=== PATIENT | male | born 2005 | race Caucasian/White ===

== ENCOUNTER 2025-03-31 08:29 | Day surgery (SDC) | payer OTHER, SELFPAY ==
[2025-03-31] VITALS (14 sets, daily range): BP systolic 104–127; BP diastolic 61–78; PULSE 60–86; RESP 16; TEMP 37.1–37.4; O2SAT 91–100; BMI 23.8
[2025-03-31] MEDS: SODIUM CHLORIDE 0.9 % (FLUSH) 10 ML SYRINGE IVF (08:58)
[2025-03-31] MEDS: LACTATED RINGERS 1000 ML 1,000 ML 100 ML IV (08:58)
--- NOTE | 2025-03-31 09:21 | W.PM.H&PU ---
History & Physical Update History & Physical Update H&P Updates: Plan is for bilateral leg open 4 compartment fasciotomies. No other H&P changes noted.
[2025-03-31] MEDS: BUPIVACAINE 0.5 %/EPI 1:200K 30 ML INJECTION (12:17)
[2025-03-31] MEDS: LIDOCAINE 1 % PF 30 ML INJECTION (12:46)
--- NOTE | 2025-03-31 13:46 | P.ANES_ITS ---
Anesthesia Charges Start Date/Time Anesthesia Start Date: 03/31/25 Anesthesia Start Time: 11:34 Stop Date/Time Anesthesia Stop Date: 03/31/25 Anesthesia Stop Time: 14:08 Coding CPT Codes CPT Codes: ANESTH LOWER LEG SURGERY - 05431 ([id number]) P1 - NORMAL HEALTHY PATIENT, QK - HAZARDOUS SUBSTANCES ENGINEER 2-4 CNCRNT ANES PROC, QX - MUSIC INTERN SVAlissa W/ MED DIRECTION
--- NOTE | 2025-03-31 13:46 | W.ANESCHARGE ---
Anesthesia Charges Start Date/Time Anesthesia Start Date: 03/31/25 Anesthesia Start Time: 11:34 Stop Date/Time Anesthesia Stop Date: 03/31/25 Anesthesia Stop Time: 14:08 Coding CPT Codes CPT Codes: ANESTH LOWER LEG SURGERY - 19579 ([id number]) P1 - NORMAL HEALTHY PATIENT, QK - FILLER MACHINE OPERATOR 2-4 CNCRNT ANES PROC, QX - CATTLE KNOCKER SVAlissa W/ MED DIRECTION
--- NOTE | 2025-03-31 14:14 | P.ANES_ITS ---
Anesthesia Charges Start Date/Time Anesthesia Start Date: 03/31/25 Anesthesia Start Time: 11:34 Stop Date/Time Anesthesia Stop Date: 03/31/25 Anesthesia Stop Time: 14:08 Coding CPT Codes CPT Codes: ANESTH LOWER LEG SURGERY - 64953 ([id number]) P1 - NORMAL HEALTHY PATIENT, QK - [place] MACHINE OPERATOR 2-4 CNCRNT ANES PROC, QX - ACCOUNTS PAYABLE CLERK SVAlissa W/ MED DIRECTION
--- NOTE | 2025-03-31 14:14 | W.ANESCHARGE ---
Anesthesia Charges Start Date/Time Anesthesia Start Date: 03/31/25 Anesthesia Start Time: 11:34 Stop Date/Time Anesthesia Stop Date: 03/31/25 Anesthesia Stop Time: 14:08 Coding CPT Codes CPT Codes: ANESTH LOWER LEG SURGERY - 46256 ([id number]) P1 - NORMAL HEALTHY PATIENT, QK - SERVICE DESK ANALYST 2-4 CNCRNT ANES PROC, QX - COMPUTER FORENSICS EXAMINER SVAlissa W/ MED DIRECTION
[2025-03-31] MEDS: IBUPROFEN 200 MG TABLET 600 MG PO (14:56)
--- NOTE | 2025-03-31 15:15 | SUR.PHASEII ---
PAtient tolerating food and drink. States pain is 5/10, maybe trending towards 6. Patient educated on the medication options he has available to him, onset, side effects, etc. Patient would like to wait at this time. Physical therapy notified of patient's height. Patient provided call light. Denies needs at this time. Parents at the bedside.
--- NOTE | 2025-03-31 15:19 | SUR.PHASEII ---
Dr. Green in to speak with patient and family.
[2025-03-31] MEDS: ACETAMINOPHEN 500 MG TABLET PO (15:30)
--- NOTE | 2025-03-31 15:54 | SUR.PHASEII ---
PT in with patient.
--- NOTE | 2025-03-31 16:43 | SUR.PHASEII ---
1640: Pt asking when he's able to drive. Per Ifeanyi DELEON, pt should not drive until after his follow-up appointment on 04/13. Patient verbalized understanding.
--- NOTE | 2025-04-01 14:44 | PM.ORPRC ---
Procedure Note Date of procedure: 04/01/25 Procedure: PREOPERATIVE DIAGNOSIS: 1. Bilateral leg chronic exertional compartment syndrome, multiple compartments (all 4) POSTOPERATIVE DIAGNOSIS: 1. Bilateral leg chronic exertional compartment syndrome, multiple compartments (all 4) PROCEDURE: 1. Bilateral leg open fasciotomy of 4 compartments (anterior, lateral, superficial posterior, and deep posterior) SURGEON: Deon Green M.D. DOUBLE BOTTOM DRIVER: Ifeanyi Shafer PA-C. Of note, an payroll and benefits assistant was critical for this case to aid in patient positioning, limb manipulation, tissue retraction, and closure. ANESTHESIA: General endotracheal anesthetic EBL: 100 mL TOURNIQUET: 8 minutes at 250 torr on the right leg; 8 minutes at 250 torr on the left leg. IMPLANTS: None COMPLICATIONS: None evident INDICATIONS: The patient is a pleasant 20-year-old male who has experienced increasing pain about bilateral legs with any type of exercise/activity. This is primarily after cross-country skiing or soccer play. He finds he needs to rest to allow the pain to regress. Compartment pressure post exercise measurement was performed showing the following findings: Left/Right: Anterior compartment 32/34 mm Hg Deep Posterior comp. 54/36 mmHg Superifical Posterior 34/49 mm Hg Lateral compartment 43/51 mmHg FINDINGS: Anterior compartment showed some pressurization but healthy muscle. The superficial peroneal nerve was visualized on both extremities and protected throughout the case. Additionally, the posterior tibial artery and vein as well as the tibial nerve were also identified and protected when moving from the superficial to the deep posterior compartments bilaterally. DESCRIPTION OF PROCEDURE: After a thorough discussion of risks, benefits, and alternatives, the patient was brought to the operating room and placed upon the operating table. Induction of anesthesia was undertaken as previously noted. 1 g IV Ancef was administered within 1 hr of incision preoperatively. Appropriate time-out was performed identifying proper patient, site, and procedure. Bilateral lower extremities were prepped and draped in the appropriate sterile fashion using ChloraPrep. We began on the right leg [for the anterior and lateral compartment release. The leg was exsanguinated and tourniquet inflated. After gauging approximately 3 finger breaths lateral from the anterior tibial crest, a dotted line was drawn from the fibular neck down to the distal fibular flare. A 7 cm length incision was made centered over the the suspected superficial peroneal nerve exit from the fascia. This was approximately 10-12 cm from the distal fibular tip. Sharp incision through skin and blunt dissect through the subcutaneous tissue allowed identification of this SPN. Initially, approximately 1-2 cm anterior to this SPN we identified the fascia and released it both superficial and deep with a closed Metzenbaum scissors to create a pathway, then the [place] was utilized to split the fascia both distally toward the fibular flare and proximally toward the fibular neck. Excellent release was achieved and confirmed with both visualization and palpation. We progressed to the lateral compartment release which was now performed posterior to the SPN. The fascial intermuscular septum was palpated to confirm the 2 separate compartments. The same process were the fascia was isolated with Metzenbaum scissors in a closed fashion both superficial and deep, it was then split with Metzenbaum scissors proximally and distally to the same length. This right lower extremity tourniquet was released. We then turned our attention to the contralateral left leg. The left tourniquet was inflated, same process undertaken with the same results-both direct visualization and palpation confirmed release of the fascia on both the anterior and lateral compartments. The tourniquet was released. Then turning towards the posterior compartments, we began on the right lower extremity. Approximately 1 cm off the medial tibial border again over approximately 5-6 cm in total length centered over the midportion of the leg a sharp incision was made with the scalpel. Blunt dissection was then performed. The saphenous vein was identified clearly. This superficial compartment was released in a similar fashion with Mets both superficial and deep to the fascia and then finally splitting the fascia both proximally and distally. We then dissected the superficial muscular tissue off from the deep compartment and released it in a similar fashion with Metzenbaum scissors again confirming both visually as well as with digital palpation that was released throughout the length from the proximal portion of the leg to the distal portion. Finally, this was similarly performed on the contralateral left leg. Thereafter, thorough irrigation normal saline was performed. Closure performed in layered fashion with 2-0 Vicryl to reapproximate the subcutaneous layer, 2-0 Stratafix and 4-0 Monocryl for subcutaneous and subcuticular closure, respectively. The patient was woken from anesthesia and transferred to the recovery room in stable condition. PLAN: 1. Weightbear as tolerated operative extremity. Crutch ambulation assistance PRN. Straight leg raise to be initiated starting tomorrow by the patient. 2. Ice, acetaminophen and/or hydrocodone for pain as needed. 3. Knee and ankle range of motion and quad sets/straight leg raise regularly 4. Remove wraps on legs POD #3. Remove mepilex adhesive dressing on POD #5-7.
== END 2025-03-31 16:44 | disposition home or self-care (01) ==
LOC: OR 08:30
PROVIDERS: Visit Provider Orthopaedic Surgery Sports Medicine
PROC: (CPT 27602; principal; 2025-03-31 10:30)
DX: T79.A21A Traumatic compartment syndrome of right lower extremity, initial encounter (principal); T79.A22A Traumatic compartment syndrome of left lower extremity, initial encounter
CPT/HCPCS: 27602; 01470; 97116; 97161; A9270; J0690; J1100; J2003; J2250; J2371; J2405; J2704; J3010; J3475; J3490; J7120